=== PATIENT | female | born 1950 | race Hispanic/Latino ===

== ENCOUNTER 2016-11-11 10:46 | Emergency (ER) | payer OTHER ==
[~2016-11-11] VITALS: Ht 160 cm; Wt 62.7 kg
[2016-11-11 10:57] VITALS: BP 130/79; PULSE 65; O2SAT 100
--- NOTE | 2016-11-11 11:10 | ED.REPORT ---
HPI-Abd Pain F 40 and Over Date of Service Nov 11, 2016 ED Provider: Karl Petit DO A 66 year old female presents to the ED complaining of abdominal pain that began last night after eating some spicy steak. Patient reports that the pain has been constant since onset. Associated symptoms include diarrhea and vomiting. Her symptoms began shortly after eating dinner last night. She rates her worst pain as 10/10. Patient states that her "stomach has been sensitive" for that past years and she has been experiencing similar episodes of pain. She was sent from Urgent Care and states that her symptoms improved after receiving a GI cocktail, which improved her pain. She denies melena. Nursing Notes Stated Complaint: ABDOMINAL PAIN Chief Complaint: Female Abdominal Pain Nursing Notes Reviewed: Yes Allergies: Coded Allergies: Sulfa (Sulfonamide Antibiotics) (Verified Allergy, Unknown, Sheron, 11/11/16 ) Scheduled Pantoprazole DR (Pantoprazole DR) 40 Mg Tablet.dr 40 MG PO DAILY General Time Seen by MD: 11:10 Chief Complaint Abdominal pain Hx Obtained From: Patient Arrived By: Walk-in Sudden in Onset?: Yes Symptom Duration: Since onset Progression since Onset: Constant Location: : Epigastric Quality: Painful Radiation: : Does not radiate Severity: Current: Moderate Severity: Maximum: Pain level 10 out of 10 Associated with: Reports: Diarrhea, Vomiting Pertinent Negative: Pt denies other symptoms Recent Healthcare: No recent doctor visit, No recent hospitalization Risk Factors )( AAA Risk Stratification Risk factors reviewed Past Medical History Past Medical History Denies Past Surgical History 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 Neurologic: Denies: Change LOC Physical Exam Vital Signs Vital Signs (First) Date Time Temp Pulse Resp B/P Pulse Ox O2 Delivery O2 Flow Rate FiO2 11/11/16 10:57 36.5 65 130/79 100 Initial VS: Reviewed Head / Eyes: Atraumatic, Normocephalic, PERRL Extremities: Vascular intact, Neuro intact, No swelling, No tenderness Skin: Warm, Dry, No cyanosis Neurologic: Alert, Oriented, Nonfocal Psychiatric: Mood/affect normal, Behavior normal, Normal thought content General/Constitutional: Awake, Alert Respiratory / Chest: Atraumatic, Breath sounds NL, Breath sounds = bilat Cardiovascular: Heart rate NL, Regular rhythm, Heart sounds NL Abdomen: Atraumatic, Soft, No guarding, No rebound Tenderness/Guarding/Rebound: Positive: Tender LUQ... (Mild), Tender RUQ... ( Mild) Back: Atraumatic, Inspection NL Interpretation & Diagnostics Lab Results Interpretation Result Diagram: 11/11/16 1211 11/11/16 1211 Test 11/11/16 12:11 11/11/16 13:00 White Blood Count 9.8th/mm3 (3.8-10.1) Red Blood Count 5.14mil/mm3 (3.90-5.20) Hemoglobin 15.8g/dL (12.0-15.6) Hematocrit 46.6% (35.0-46.0) Mean Corpuscular Volume 90.7fL (81-100) Mean Corpuscular Hemoglobin 30.7pg (27.0-35.0) Mean Corpuscular Hemoglobin Concent 33.9% (32.0-37.0) Red Cell Distribution Width 12.7% (12.3-15.4) Platelet Count 311bil/L (150-400) Neutrophils (%) (Auto) 92.6% (40-74) Lymphocytes (%) (Auto) 4.9% (14-46) Monocytes (%) (Auto) 1.8% (4-12) Eosinophils (%) (Auto) 0.1% (0-5) Basophils (%) (Auto) 0.2% (0-3) Sodium Level 141mEq/L (134-144) Potassium Level 4.5mEq/L (3.5-5.2) Chloride Level 103mEq/L (97-108) Carbon Dioxide Level 24mmol/L (18-29) Blood Urea Nitrogen 17mg/dL (8-27) Creatinine 0.81mg/dL (0.57-1.00) Estimat Glomerular Filtration Rate 102mL/min (>59) Glucose Level 113mg/dL (60-99) Lactic Acid Level 1.2mmol/L (0.4-2.0) Calcium Level 9.6mg/dL (8.5-10.1) Magnesium Level 2.2mg/dL (1.6-2.6) Total Bilirubin 0.6mg/dL (0.0-1.2) Aspartate Amino Transf (AST/SGOT) 17U/L (0-50) Alanine Aminotransferase (ALT/SGPT) 12U/L (0-32) Alkaline Phosphatase 77U/L (25-165) Total Protein 8.1g/dL (6.4-8.4) Albumin 4.6g/dL (3.4-5.0) Lipase 29U/L (13-60) Hold Urine Received (Received) Lab Results Interpretation: Negative Urine Dip ECG Interpretation ECG Interpretation: Normal Sinus Rhythm Rate 62 Time: 11:33 Interpreted by: ED physician Re-Eval/Medical Decision Med Decision/Clinical Course Benign labs and abdominal exam, patient gives a long history of reflux symptoms and that this is worsened after eating a meal last night. Feeling better and tolerating oral intake it seems unlikely that she has life-threatening pathology at this time. It is recommended that she follow-up with her doctor for GI consult and possible abdominal ultrasound versus CAT scan as an outpatient. Additionally Protonix and Zofran prescribed and return precautions given. Re-Evaluation/Progress : Time of Eval: 13:09 Patient Status: Condition improved Re-Evaluation/Progress Note: Patient is rechecked. She is informed of her lab results and diagnosis. All of the patient's questions are addressed. She understands and agrees with the treatment plan. Counseled Regarding: Diagnosis, Lab results, Need for follow-up, When/why to return to ED Discharge & Departure Primary Impression: Abdominal Pain, Epigastric Disposition: Home Discharge Condition All VS Reviewed: Yes Condition: Stable Patient Instructions: Acute Abdominal Pain (ED) Additional Instructions: Thank you for trusting us with your care this morning. Your emergency department evaluation today included interview, examination and lab results. Your results are reassuring that there is no dangerous cause for concern at this time. Schedule a follow up appointment with your primary care provider in the next 2-3 days for a recheck. Use [id number] antacid as needed. Stop omeprazole and use pantoprazole. Please return to the emergency department for any new or worsening symptoms. [facility] Scribe Attestation Portions of this note were transcribed by Keely Rob. I, Dr. Petit personally performed the history, physical exam and medical decision-making; I reviewed and confirmed the accuracy of the information in the transcribed note. Signed by: Keely Rob, 11/11/16, 1344. Karl Petit DO Nov 11, 2016 11:10 KEELY ROB Nov 11, 2016 11:23
[2016-11-11] MEDS ORDERED: 0.9% Sodium Chloride 1,000 ML IV ONE (11:22)
[2016-11-11] MEDS ORDERED: Pantoprazole 4 mg/mL 10 mL Inj IVPUSH ONE (11:25)
[2016-11-11] MEDS ORDERED: Ondansetron 2 mg/mL 2 mL Inj IVPUSH PRN (11:25)
[2016-11-11 12:16] LABS: BASOPHILS % (AUTO) 0.2 % (0-3); EOSINOPHILS % (AUTO) 0.1 % (0-5); MONOCYTES % (AUTO) 1.8 % (4-12); Mean Corpuscular Hemoglobin 30.7 pg (27.0-35.0); Mean Corpuscular Volume 90.7 fL (81-100); NEUTROPHILS % (AUTO) 92.6 % (40-74); Platelet Count 311 bil/L (150-400)
[2016-11-11 13:03] LABS: Magnesium 2.2 mg/dL (1.6-2.6)
[2016-11-11] MEDS ORDERED: PANT40TA3 PO (13:40)
[2016-11-11 14:22] VITALS: BP 151/73; PULSE 60; O2SAT 100
[2016-11-11 14:45] VITALS: BP 151/73; PULSE 60; O2SAT 100
[2016-11-12] MEDS ORDERED: OMEP40CA36 PO (13:26)
== END 2016-11-11 14:45 | disposition home or self-care (01) ==
LOC: SED 10:46
DX: R10.13 Epigastric pain (principal); R19.7 Diarrhea, unspecified; R11.10 Vomiting, unspecified; Z88.2 Allergy status to sulfonamides
CPT/HCPCS: 80053; 83605; 83690; 83735; 85025; 93005; 96361; 96374; 96375; 99285; J2270; J2405; J7030

== ENCOUNTER 2016-11-12 08:21 | Inpatient (IN) | payer OTHER ==
[~2016-11-12] VITALS: Ht 160 cm; Wt 64.3 kg
[~2016-11-12 08:21] MED LIST: PANT40TA3 PO
[2016-11-12 08:23] VITALS: BP 105/69; PULSE 71; RESP 16; O2SAT 99
--- NOTE | 2016-11-12 08:29 | ED.REPORT ---
HPI-Abd Pain F 40 and Over Date of Service Nov 12, 2016 ED Provider: Karl Petit DO Patient is a 66 year old female presents to the ER complaining of epigastric pain that has been ongoing over the last few days. Her pain began two nights ago after she ate "spicy" steak. The patient has been nauseated and vomited a few times throughout the night. She is unable to pass gas and has not had a bowel movement. Patient describes pain as constant but tolerable, with infrequent jabs of pain. She was unable to sleep all night due to the pain. Pt c /o associated chills, diaphoresis, and light headedness. Pt took a tsp of antacid and Zofran last night which did not help to relieve symptoms. She was seen in the emergency department yesterday for similar symptoms. Patient states that her "stomach has been sensitive" for years and she has been experiencing similar episodes of pain. Nursing Notes Stated Complaint: STOMACH PAIN Chief Complaint: Female Abdominal Pain Nursing Notes Reviewed: Yes Allergies: Coded Allergies: Sulfa (Sulfonamide Antibiotics) (Verified Allergy, Unknown, Sheron, 11/11/16 ) Scheduled Pantoprazole DR (Pantoprazole DR) 40 Mg Tablet.dr 40 MG PO DAILY General Time Seen by MD: 08:27 Chief Complaint Abdominal pain Hx Obtained From: Patient Arrived By: Walk-in Sudden in Onset?: Yes Symptom Duration: Since onset Location: : Diffuse Quality: Painful Radiation: : Does not radiate Severity: Current: Mild Severity: Maximum: Moderate Recent Healthcare: Recent doctor visit, Recent hospitalization Similar Sx Previous: Yes Past Medical History Past Medical History None Past Surgical History 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 Neurologic: Reports: Lightheaded Physical Exam Vital Signs Vital Signs (First) Date Time Temp Pulse Resp B/P Pulse Ox O2 Delivery O2 Flow Rate FiO2 11/12/16 08:23 36.4 71 16 105/69 99 Room Air Initial VS: Reviewed Skin: Warm, Dry, No cyanosis Neurologic: Alert, Oriented, Nonfocal Psychiatric: Mood/affect normal, Behavior normal, Normal thought content General/Constitutional: Awake, Alert Respiratory / Chest: Atraumatic, Breath sounds NL, Breath sounds = bilat, No respiratory distress, No rales Cardiovascular: Heart rate NL, Regular rhythm, Heart sounds NL Bowel Sounds / Distention: Positive: Bowel sounds tympanitic distended Back: Atraumatic, Inspection NL, Full range of motion, Painless range of motion , Non-tender Head / Eyes: Atraumatic, Normocephalic, PERRL, EOMI ENT: Atraumatic, Mucous membranes moist, Pharynx NL Interpretation & Diagnostics Lab Results Interpretation Result Diagram: 11/12/16 0850 11/12/16 0850 Test 11/12/16 08:50 White Blood Count 7.0th/mm3 (3.8-10.1) Red Blood Count 4.79mil/mm3 (3.90-5.20) Hemoglobin 14.7g/dL (12.0-15.6) Hematocrit 43.8% (35.0-46.0) Mean Corpuscular Volume 91.4fL (81-100) Mean Corpuscular Hemoglobin 30.7pg (27.0-35.0) Mean Corpuscular Hemoglobin Concent 33.6% (32.0-37.0) Red Cell Distribution Width 12.6% (12.3-15.4) Platelet Count 308bil/L (150-400) Neutrophils (%) (Auto) 81.0% (40-74) Lymphocytes (%) (Auto) 11.5% (14-46) Monocytes (%) (Auto) 7.0% (4-12) Eosinophils (%) (Auto) 0.1% (0-5) Basophils (%) (Auto) 0.1% (0-3) Sodium Level 142mEq/L (134-144) Potassium Level 4.2mEq/L (3.5-5.2) Chloride Level 103mEq/L (97-108) Carbon Dioxide Level 26mmol/L (18-29) Blood Urea Nitrogen 18mg/dL (8-27) Creatinine 0.87mg/dL (0.57-1.00) Estimat Glomerular Filtration Rate 94mL/min (>59) Glucose Level 113mg/dL (60-99) Calcium Level 9.1mg/dL (8.5-10.1) Magnesium Level 2.1mg/dL (1.6-2.6) Total Bilirubin 0.7mg/dL (0.0-1.2) Aspartate Amino Transf (AST/SGOT) 14U/L (0-50) Alanine Aminotransferase (ALT/SGPT) 9U/L (0-32) Alkaline Phosphatase 64U/L (25-165) Total Protein 7.2g/dL (6.4-8.4) Albumin 4.1g/dL (3.4-5.0) Lipase 26U/L (13-60) CT Abd / Pelvis Interpretation IMPRESSION: Partial small bowel obstruction due to 15-20 cm of abnormal appearing jejunum. The jejunum appears to be thick walled with enhancing mucosa. Cause of this is not identified. This could be inflammatory, effective, or ischemic. Dictated by: Pan Black M.D. on 11/12/2016 at 9:51 Study type: Abdominal CT IV contrast Interpretation / Wet Read by: Interpret - Radiologist Re-Eval/Medical Decision Med Decision/Clinical Course Small bowel obstruction. Will be admitted. Surgery consulted. Re-Evaluation/Progress : Time of Eval: 10:15 Re-Evaluation/Progress Note: Pt rechecked. Informed pt of diagnosis of partial bowel obstruction and plan for treatment and admission. Pt understands and agrees with plan. All questions answered. Consultation #1: Referral / Consult Name: Ronald Cordero MD Consulted With: Surgeon Call Returned at: 10:34 Steel Crane Operator: Will see patient, Agrees with eval, Agrees with plan, Accepts admit Note: Consults with surgeon, Dr. Ronald Cordero. Surgeon will come and see patient and does not recommend to put in an NG tube. Consultation #2: Referral / Consult Name: Nghia Santana MD Consulted With: Hospitalist Call Returned at: 10:56 Steel Crane Operator: Will see patient, Agrees with eval, Accepts admit Counseled Regarding: Diagnosis, Lab results, Need for admission Discharge & Departure Primary Impression: Partial bowel obstruction Disposition: ADMITTED TO HOSPITAL Discharge Condition All VS Reviewed: Yes Condition: Stable Referrals: Danika Frey (PCP) Scribe Attestation Portion of this note were transcribed by Montse Hagen and Anna Marie Ward. I, Dr. Adrian Bee, personally performed the history, physcial exam, and medical decision- making: I reviewed and confirmed the accuracy for the information in the transcribed note. Signed by: Anna Marie Ward and sam Henry, 11/09/16 1101. copies to: Danika Frey Timothy S DO Nov 12, 2016 08:29 ANNA MARIE WARD Nov 12, 2016 08:48 Montse Hagen Nov 12, 2016 10:10
[2016-11-12] MEDS ORDERED: Alum-Mag Hydrox-Simeth 30 mL Suspension PO ONE (08:40)
[2016-11-12] MEDS ORDERED: 0.9% Sodium Chloride 1,000 ML IV ONE (08:41)
[2016-11-12] MEDS ORDERED: Pantoprazole 4 mg/mL 10 mL Inj IVPUSH ONE (08:45)
[2016-11-12] MEDS ORDERED: Promethazine Inj 25 MG in 0.9% Sodium Chloride 50 ML IV ONE (08:45)
[2016-11-12 08:48] VITALS: BP 150/78; PULSE 88; RESP 17; O2SAT 99
[2016-11-12 09:05] LABS: BASOPHILS % (AUTO) 0.1 % (0-3); EOSINOPHILS % (AUTO) 0.1 % (0-5); Mean Corpuscular Hemoglobin 30.7 pg (27.0-35.0); Mean Corpuscular Volume 91.4 fL (81-100); Platelet Count 308 bil/L (150-400)
[2016-11-12 09:24] LABS: Magnesium 2.1 mg/dL (1.6-2.6)
--- NOTE | 2016-11-12 09:53 | DRSVH ---
PROCEDURE: CT ABDOMEN AND PELVIS WITH CONTRAST ([id number]) INDICATIONS: upper abd pain, persistent vomiting TECHNIQUE: After the administration of intravenous contrast, 5 mm thick sections acquired from the diaphragm to the symphysis. 5 mm coronal and sagittal reformats were acquired. For radiation dose reduction, the following was used: automated exposure control, adjustment of mA and/or kV according to patient siz e. COMPARISON: None. FINDINGS: Image quality: Excellent. ABDOMEN: Lung bases: Lung bases are clear. Heart size is normal. Solid organs: Liver and spleen are normal in size and enhancement. In the right lobe of the liver is a 1.4 cm area that appears irregular discontinuous enhancement. No pneumothorax can represent an hem angioma. In the spleen there 2 areas of decreased attenuation compared to normal enhancing parenchyma of unknown significance as they are an old studies to compare. Gallbladder is considered within nor mal limits.. Biliary system is non dilated. Pancreas enhances normally. No adrenal nodules. Kidne ys demonstrate normal size and enhancement, without hydronephrosis. Peritoneum and bowel: There is a moderate amount of fluid in the stomach and proximal small bowel co nsistent with partial obstruction. The obstruction is thought to be jejunum and position and series 3 image 32 there is an abrupt transition. At this point there appears to be 15-20 cm of small bowel wi th some thickening wall and enhancing mucosa. No air in bowel wall is seen. No identifiable vascular abnormality to indicate loss of enhancement from contrast is seen. Inflammation or infection could ca use this appearance. Adhesion could cause ischemic change. Terminal ileum cecum area are considered w ithin normal limits. There is a small amount of free fluid in the cul-de-sac. Nodes and vessels: No retroperitoneal or mesenteric adenopathy by size criteria. Aorta and inferior vena cava are normal in size. Miscellaneous: No ventral hernias. PELVIS: Genitourinary: Bladder wall thickness is normal. Uterus is mildly enlarged and heterogeneous and lo bular suggesting multiple fibroids. Miscellaneous: No inguinal hernias or adenopathy. Bones: No suspicious bony lesions. No vertebral body compression fractures. IMPRESSION: Partial small bowel obstruction due to 15-20 cm of abnormal appearing jejunum. The jejunu m appears to be thick walled with enhancing mucosa. Cause of this is not identified. This could be in flammatory, effective, or ischemic. Dictated by: Pan Black M.D. on 11/12/2016 at 9:51 Approved by: Pan Black M.D. on 11/12/2016 at 9:51 Dr. Petit is aware of these findings.
[2016-11-12] MEDS ORDERED: Polyethylene Glycol (PEG) 17 Gm Powder PO PRN (11:00)
[2016-11-12] MEDS ORDERED: Alum-Mag Hydrox-Simeth 30 mL Suspension PO PRN (11:00)
[2016-11-12 11:43] VITALS: BP 106/66; PULSE 66; RESP 20; O2SAT 97
[2016-11-12] MEDS: D5 0.45% NaCl + KCl 20 mEq/L 1,000 ML IV SCH (12:35)
--- NOTE | 2016-11-12 13:20 | NUR ---
Admit to [facility] Pt arrived from ED at 1150 hrs. Alert and oriented X 3. PIV patent and symptomatic. VSS; afebrile. Pt denies nausea at this time. Personal possessions with pt and placed in closet. Spouse at bedside. NG tube was inserted and connected to continuous suction. Tube draining clear, watery drainage fluid. Care continues
[2016-11-12] MEDS ORDERED: OMEP40CA36 PO (13:26)
[2016-11-12 13:30] LABS: APPEARANCE,URINE CLEAR (CLEAR,HAZY); COLOR,URINE YELLOW (YELLOW); OCCULT BLOOD,URINE TRACE (NEGATIVE); UROBILINOGEN,URINE NORMAL (NORMAL)
--- NOTE | 2016-11-12 14:37 | PCM.HPMED ---
Subjective Date of Service Nov 12, 2016 Primary Provider: Admitting Physician: Primary Care Physician: Danika Frey Attending Physician: Admit Status: From the Emergency Department, Admit to Red Team Chief Complaint: 66-year-old woman with history of dyspepsia presents with acute abdominal pain, nausea and vomiting, found to have partial small bowel obstruction on abdominal CT scan. History of Present Illness: The patient had an episode of acute epigastric pain in 12/2015 treated with antacid therapy. She subsequently observed dietary precautions and has taken omeprazole 20 mg per day. She has had no significant recurrence. 2 days prior to admission in the evening after dinner she experience severe symptoms similar to her prior episode. Pain was initially epigastric. He was described as a sharp pain centered in her bilateral upper quadrants and epigastrium. The patient had a colicky pattern over the time period of 5-30 minutes. Underlying pain was continuous throughout. The pain radiated to her lower abdominal quadrants bilaterally She developed several bouts of nausea and vomiting. She took antacids, and had some diarrhea subsequently. Diarrhea stopped one day prior to admission and she has had no further stool output or flatus. She and her endorse abdominal distention. Other than one episode of acute epigastric pain in 12/2015 she has no prior gastroenterologic history. At age 8 months she had abdominal surgery, but has had no subsequent abdominal surgery. She has no history of colitis, Crohn's, celiac disease, gallbladder disease, hepatic problems, never diagnosed peptic ulcer. Family history is negative for gastric malignancy. On review of systems she has no symptoms elsewhere in her body. Review of Systems: Complete review of systems performed with significant findings noted in history of present illness and PMH. Pertinent negatives include no ocular pain, no skin lesions, no infectious exposures. Allergies Coded Allergies: Sulfa (Sulfonamide Antibiotics) (Verified Allergy, Intermediate, Nausea, ) Home Medications Omeprazole 20 mg per day PMH # Functional dyspepsia # Pneumonia 2014 Family History Mother at 95 Father CVA 5 siblings, one sister due to cardiac valvular disease, one sister with gallbladder surgery, others alive and well Social History Occupation: high school assistant football coach, full-time Hx Alcohol Use: Yes (rarely) Hx Substance Use: No Smoking Status: Never Smoker Living Arrangement: with Family Additional Information Lives with . No biological children. Exam Vital Signs Vital Sign - Last Date Time Temp Pulse Resp B/P Pulse Ox O2 Delivery O2 Flow Rate FiO2 11/12/16 08:23 36.4 71 16 105/69 99 Room Air Exam Constitutional: Healthy appearing middle-aged woman ; no acute distress; vital signs noted Eyes: sclerae anicteric, no conjunctival pallor, no conjunctival injection ENMT: ears, nose atraumatic; oral mucosa moist Neck: supple, JVD absent Chest: symmetric, no pain or lesions Resp: auscultation clear, no wheezes, rales or dullness Cardiac: S1, S2, regular, no murmur Abdomen: bowel sounds present but slightly reduced, tender in epigastric palpation, no rebound, no organomegaly, Varner's sign negative, no obvious distention or tympany Musculoskeletal: no joints with acute erythema, swelling Skin and soft tissues: no rash; no pitting edema Peripheral pulses: normal at wrist, feet Lymphatic: no adenopathy cervical Neurological: Cranial Nerves - face symmetric Reflexes - BJ, KJ symmetric 2+ Motor - 5/5 strength, normal tone Coordination - normal movement, no tremor Sensory - light touch intact Psych & Mental Status - oriented Lab and Diagnostics Labs UA normal Result Diagram: 11/12/16 0850 11/12/16 0850 X-Rays, CTs and MRIs PROCEDURE: CT ABDOMEN AND PELVIS WITH CONTRAST ([id number]) FINDINGS: Solid organs: Liver and spleen are normal in size and enhancement. In the right lobe of the liver is a 1.4 cm area that appears irregular discontinuous enhancement. No pneumothorax can represent an hemangioma. In the spleen there 2 areas of decreased attenuation compared to normal enhancing parenchyma of unknown significance as they are an old studies to compare. Gallbladder is considered within normal limits.. Biliary system is non dilated. Pancreas enhances normally. No adrenal nodules. Kidneys demonstrate normal size and enhancement, without hydronephrosis. Peritoneum and bowel: There is a moderate amount of fluid in the stomach and proximal small bowel consistent with partial obstruction. The obstruction is thought to be jejunum and position and series 3 image 32 there is an abrupt transition. At this point there appears to be 15-20 cm of small bowel with some thickening wall and enhancing mucosa. No air in bowel wall is seen. No identifiable vascular abnormality to indicate loss of enhancement from contrast is seen. Inflammation or infection could cause this appearance. Adhesion could cause ischemic change. Terminal ileum cecum area are considered within normal limits. There is a small amount of free fluid in the cul-de-sac. IMPRESSION: Partial small bowel obstruction due to 15-20 cm of abnormal appearing jejunum. The jejunum appears to be thick walled with enhancing mucosa. Cause of this is not identified. This could be inflammatory, effective, or ischemic. Dictated by: Pan Black M.D. on 11/12/2016 at 9:51 . Assessment & Plan 66-year-old woman with history of functional dyspepsia presents with acute abdominal pain. Initial presentation appeared to be gastritic with food stimulus and pain similar to prior epigastric episodes. Subsequently patient notes increased abdominal bloating with reduced stool and flatus, compatible with abdominal CT findings of partial SBO. No prior history to explain the jejunal location for SBO. # Partial small bowel obstruction, acute. - Nothing by mouth with maintenance IV hydration - Gen. surgery consult - Abdominal ultrasound for further visualization of gastric, biliary hepatic anatomy - NG tube in place at present, consider low intermittent suction if the patient is nauseated - Patient counseled to minimize use of opioids; only as needed for severe pain # Peptic disease, acute on chronic. - IV proton pump inhibitor - Will consider GI consult if epigastric symptoms persist despite resolution of partial SBO; not needed at present Pain Evaluation: Adequate Pain Control GI Prophylaxis: Proton Pump Inhibitor VTE Prophylaxis: Sub-Q Enoxaparin Resuscitation Status: CPR: Attempt Resuscitation Time spent 60 minutes Nghia Santana MD Nov 12, 2016 11:01
[2016-11-12 17:02] VITALS: BP 113/68; PULSE 71; RESP 20; O2SAT 95
--- NOTE | 2016-11-12 17:03 | DRSVH ---
PROCEDURE: US ABDOMEN, LIMITED ([id number]) INDICATIONS: abdominal pain TECHNIQUE: Real-time focused scanning was performed of the abdomen, with image documentation. COMPARISON: None. FINDINGS: The liver shows an increased echogenicity suggesting possible mild fatty infiltration. This is probably true with review of the CT scan as well. The gallbladder shows no wall thickening or acute changes. There is an echogenic focus that does not move and does not shadow and is consistent with a small polyp measuring 4 x 5 x 7 mm in size. Extrahe patic biliary tree and intrahepatic biliary tree are not dilated. The 2 areas of decreased attenuation on the CT scan of increased echogenicity on ultrasound and would suggest hemangiomas in the spleen. IMPRESSION: 1. Probable fatty infiltration of the liver. 2. 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 3. Small polyp in the gallbladder. Dictated by: Pan Black M.D. on 11/12/2016 at 17:01 Approved by: Pan Black M.D. on 11/12/2016 at 17:01
--- NOTE | 2016-11-12 17:36 | CONS ---
[address] [address] CONSULTATION REPORT PATIENT: HEATHER WILSON : 1950 MR#: [id number] ADMIT: 11/12/2016 JOB ID: [id number] DATE OF SERVICE: 11/12/2016 CHIEF COMPLAINT/IDENTIFICATION: I have been asked by Dr. Petit and the hospitalist service to consult on this 66-year-old woman with a partial small bowel obstruction. HISTORY OF PRESENT ILLNESS: The patient was in her usual good state of health until Sunday night after she ate some spicy steak and developed explosive, watery diarrhea, crampy abdominal pain and nausea and vomiting. She was seen in the emergency department and noted to be a bit dehydrated, received hydration and then follows up today, stating that her diarrhea has resolved, but she has been vomiting and continues to have the crampy abdominal pain. X-rays are consistent with a partial small bowel obstruction. She tells me that she had some unknown surgery as a child at eight months and does have a right upper quadrant paramedian incision. She also notes that she did have some self-limited abdominal pain back in December that she sought care with her primary care provider but no hospitalization and no GI workup as everything resolved. She reports always having a "sensitive stomach." PAST MEDICAL HISTORY: Otherwise negative. MEDICATIONS: None. ALLERGIES: SULFA. SOCIAL HISTORY: She works at [employer] in [place], is planning to retire next year. She is seen with her . Negative tobacco. Negative daily alcohol. FAMILY HISTORY: Noncontributory. REVIEW OF SYSTEMS: Negative. PHYSICAL EXAMINATION: Height and weight proportionate female in no acute distress. Temperature is 36.4. Vital signs are within normal limits. Her sclerae are clear. She has no cervical adenopathy. Breasts are not examined. Lungs and heart are unremarkable. Her abdomen is mildly distended, with rushes and tinkles, no focal tenderness. She has no groin hernias. She has no groin adenopathy. LABORATORY DATA: Her white count is 7, her hematocrit is 43. Platelet count is 308. Chemistries are normal. Lipase is 26. CT scan was obtained and I have reviewed both the images and the report. She definitely has a proximal dilated small bowel all the way back to the stomach filled with fluid and some air fluid levels in the small bowel. Somewhere in the mid jejunum there appears to be a 15-20 cm segment of small bowel that has thickened willoughby, enhancing mucosa and this is a transition point. There is no significant free fluid around the bowel though there is a small amount of free fluid noted in the cul-de-sac. IMPRESSION AND PLAN: A healthy 66-year-old woman that has a partial mechanical/functional obstruction due to an abnormal segment of jejunum that may represent some focal enteritis versus focal ischemia versus acute on chronic thickening. She clearly does not need an operation today. I would recommend a nasogastric tube for comfort. If this all completely resolves radiographically and clinically over the next 24 hours, she may need no further workup but at some point she might benefit from both upper endoscopy and possibly even capsule endoscopy. If this focal abnormality persists and/or worsens, she may need a laparoscopic exploration sometime this hospitalization. General Surgery will continue to follow her. I will order plain films for tomorrow.
[2016-11-12] MEDS: Pantoprazole 4 mg/mL 10 mL Inj IVPUSH SCH (18:16)
[2016-11-12 20:16] VITALS: BP 116/71; PULSE 66; RESP 18; O2SAT 98
[2016-11-12] MEDS ORDERED: Famotidine Inj 20 MG in IV Premix 1 EACH IV SCH (20:30)
[2016-11-13] VITALS (8 sets, daily range): BP systolic 112–143; BP diastolic 67–86; PULSE 60–83; RESP 14–20; O2SAT 94–100
[2016-11-13] MEDS: D5 0.45% NaCl + KCl 20 mEq/L 1,000 ML IV SCH ×3 (00:33→23:51)
--- NOTE | 2016-11-13 04:11 | NUR ---
Activity Pt ambulates with on unit x1 this shift. Denies pain, discomfort of tube in nose is minimal. Educated on diet, narcotic use in relation to constipation, and activity to promote bowel movement. Pt A&Ox4, VS WNL, and without SOB or chest pain. Abdominal distension relieved by NG, draining watery green fluid. Pt remains NPO, CS checked and WNL. IV site patent and infusing D5 1/2 NS with 20 mEq K+. Will continue to monitor.
[2016-11-13 06:22] LABS: BASOPHILS % (AUTO) 0.2 % (0-3); EOSINOPHILS % (AUTO) 1.2 % (0-5); MONOCYTES % (AUTO) 12.1 % (4-12); Mean Corpuscular Hemoglobin 30.9 pg (27.0-35.0); Mean Corpuscular Volume 93.3 fL (81-100); NEUTROPHILS % (AUTO) 61.4 % (40-74); Platelet Count 281 bil/L (150-400)
--- NOTE | 2016-11-13 08:55 | NUR ---
Off Unit Patient off the floor to x-ray via W/C.
--- NOTE | 2016-11-13 09:03 | NUR ---
Back on Unit Patient back on floor from x-ray via W/C.
--- NOTE | 2016-11-13 10:32 | DRSVH ---
PROCEDURE: X-RAY ACUTE ABDOMINAL SERIES ([id number]) INDICATIONS: f/u sbo TECHNIQUE: One view chest and two views of the abdomen were acquired. COMPARISON: [facility], CT, CT ABD PELVIS W CON, 11/12/2016, 9:14. FINDINGS: Surgical changes and devices: There is a nasogastric tube in stomach. Chest: No acute pulmonary opacities. Left basilar opacities are likely atelectasis. Heart size is no rmal. No pleural effusions. No pneumoperitoneum. Abdomen: Mildly distended small bowel loops are noted in mid abdomen with several air-fluid levels. T he distal small bowel there is non-aerated. Moderate amount of stool in colon. No suspicious calcifi cations. Visualized solid organ contours appear normal. Bones: No suspicious bony lesions. IMPRESSION: Persistent small bowel obstruction. Dictated by: Judy Rockwell M.D. on 11/13/2016 at 10:30 Approved by: Judy Rockwell M.D. on 11/13/2016 at 10:30
[2016-11-13] MEDS: Pantoprazole 4 mg/mL 10 mL Inj IVPUSH SCH ×2 (10:38→17:12)
--- NOTE | 2016-11-13 11:11 | PCM.PNSURG ---
Subjective Visit Information: Reason for Visit Partial Sbo Surgery/Surgery Date Post-Op Day # Date of Admission: Nov 12, 2016 at 11:01 Hospital Day # Subjective: feels better, hasn't required pain meds, less abd distention, NGT less bilious, passed a little flatus Objective Objective Awake in bed NGT in place Abd: benign, nontender, R paramedian scar Vital Sign- Last 8 Hours Date Time Temp Pulse Resp B/P Pulse Ox O2 Delivery O2 Flow Rate FiO2 11/13/16 09:48 36.8 72 16 112/75 99 Room Air 11/13/16 06:32 37.1 76 16 118/77 99 Room Air Intake and Output- Last 8 Hour 11/13/16 Cumulative From/Thru 07:00 11/12/16 08:23 - 11/13/16 06:32 Intake Total 951 ml 2317 ml Output Total 900 ml 1725 ml Balance 51 ml 592 ml Intake Oral 0 ml 0 ml IV Total 951 ml 2317 ml Output Urine Total 900 ml 1525 ml Gastric Drainage Total 0 ml 200 ml # Bowel Movements 0 0 Result Diagram: 11/13/16 0530 11/13/16 0530 Assessment & Plan Impression Abd pain, partial SBO, improving Thickened jejunum on CT scan Problems: Plan Will consult GI service for EGD today Clamp NGT and check residual in 4 hrs Ambulate VTE Prophylaxis: Sub-Q Enoxaparin Resuscitation Status: CPR: Attempt Resuscitation Nicola Bateman MD Nov 13, 2016 11:11
[2016-11-13] MEDS ORDERED: Acetaminophen 32.5 mg/mL 20 mL Liquid PO PRN (11:20)
[2016-11-13] MEDS ORDERED: fentaNYL-PF 50 mCg/mL 2 mL Inj IVPUSH PRN (14:30)
--- NOTE | 2016-11-13 14:45 | NUR ---
Off Unit Patient off floor to ENDO via stretcher. IV SL
--- NOTE | 2016-11-13 15:09 | PCM.PNMED ---
Subjective Date of Service Nov 13, 2016 Subjective Pt seen and examined. Patient has no complaints. Claims the nausea has subsided significantly. Will continue to monitor out put. Exam Vital Signs Vital Sign - Last Date Time Temp Pulse Resp B/P Pulse Ox O2 Delivery O2 Flow Rate FiO2 11/13/16 14:56 69 14 120/74 97 Room Air 11/13/16 09:48 36.8 Intake and Output 11/12/16 11/12/16 11/13/16 Cumulative From/Thru 14:59 22:59 06:59 11/12/16 08:23 - 11/13/16 06:32 Intake Total 1000 ml 366 ml 951 ml 2317 ml Output Total 825 ml 900 ml 1725 ml Balance 1000 ml -459 ml 51 ml 592 ml Intake Oral 0 ml 0 ml 0 ml IV Total 1000 ml 366 ml 951 ml 2317 ml Output Urine Total 625 ml 900 ml 1525 ml Gastric Drainage Total 200 ml 0 ml 200 ml # Bowel Movements 0 0 Exam General:Pt in no acute distress and resting comfortably HEENT: sclerae anicteric, oral mucosa moist Neck: no JVD Chest: clear to auscultation Cardiac: S1S2, II/ SE murmur with prosthetic S2 Abdomen: BS normal, non-tender, non distended Extremities: No acute asymmetry or focal swelling Neuro: A&O, cranial nerves symmetric, motor strength and coordination grossly normal Lab and Diagnostics Result Diagram: 11/13/16 0530 11/13/16 0530 X-Rays, CTs and MRIs PROCEDURE: CT ABDOMEN AND PELVIS WITH CONTRAST ([id number]) FINDINGS: Solid organs: Liver and spleen are normal in size and enhancement. In the right lobe of the liver is a 1.4 cm area that appears irregular discontinuous enhancement. No pneumothorax can represent an hemangioma. In the spleen there 2 areas of decreased attenuation compared to normal enhancing parenchyma of unknown significance as they are an old studies to compare. Gallbladder is considered within normal limits.. Biliary system is non dilated. Pancreas enhances normally. No adrenal nodules. Kidneys demonstrate normal size and enhancement, without hydronephrosis. Peritoneum and bowel: There is a moderate amount of fluid in the stomach and proximal small bowel consistent with partial obstruction. The obstruction is thought to be jejunum and position and series 3 image 32 there is an abrupt transition. At this point there appears to be 15-20 cm of small bowel with some thickening wall and enhancing mucosa. No air in bowel wall is seen. No identifiable vascular abnormality to indicate loss of enhancement from contrast is seen. Inflammation or infection could cause this appearance. Adhesion could cause ischemic change. Terminal ileum cecum area are considered within normal limits. There is a small amount of free fluid in the cul-de-sac. IMPRESSION: Partial small bowel obstruction due to 15-20 cm of abnormal appearing jejunum. The jejunum appears to be thick walled with enhancing mucosa. Cause of this is not identified. This could be inflammatory, effective, or ischemic. Dictated by: Pan Black M.D. on 11/12/2016 at 9:51 . Assessment & Plan 66-year-old woman with history of functional dyspepsia presents with acute abdominal pain. Initial presentation appeared to be gastritic with food stimulus and pain similar to prior epigastric episodes. Subsequently patient notes increased abdominal bloating with reduced stool and flatus, compatible with abdominal CT findings of partial SBO. No prior history to explain the jejunal location for SBO. # Partial small bowel obstruction, acute. - Nothing by mouth with maintenance IV hydration - Gen. surgery consult - Abdominal ultrasound for further visualization of gastric, biliary hepatic anatomy - NG tube in place at present, consider low intermittent suction if the patient is nauseated - per patient she is going for upper endoscopy later today # Peptic disease, acute on chronic. - IV proton pump inhibitor - Will consider GI consult if epigastric symptoms persist despite resolution of partial SBO; not needed at present GI Prophylaxis: Proton Pump Inhibitor VTE Prophylaxis: Sub-Q Enoxaparin VTE Mechanical Devices: Intermittant Pneumatic CD Resuscitation Status: CPR: Attempt Resuscitation Santiago Reynolds MD Nov 13, 2016 15:09
[2016-11-13] MEDS ORDERED: 0.9% Sodium Chloride 1,000 ML ONE (15:19)
[2016-11-13] MEDS: 0.9% Sodium Chloride 1,000 ML ONE ×2 (15:34→15:47)
--- NOTE | 2016-11-13 16:30 | NUR ---
Back on Unit Patient back on floor from ENDO via stretcher. Denies pain and nausea at this time. Call light and tray table within reach. Will continue to monitor patient hourly.
--- NOTE | 2016-11-13 17:00 | NUR ---
NG Tube NG tube DC'd. Patient diet advanced to clear liquid. Patient denies pain and nausea at this time. Will continue to monitor patient.
--- NOTE | 2016-11-13 18:09 | PCM.CHPMED ---
Subjective Date of Service: Nov 13, 2016 Provider requesting consult: Nghia Santana MD Primary Physician: Admitting Physician: Kamila Rodríguez MD Primary Care Physician: Danika Frey Attending Physician: Kamila Rodríguez MD Chief Complaint: Chief Complaint: Abdominal pain History of Present Illness: Gastroenterology Consult Note Patient is a 66 year old female with history of dyspepsia who presents with severe epigastric pain after eating spicy steak 2 days ago. She reports her pain initially started as a sharp pain in the epigastric region, similar to her prior pain but more severe. The pain began to move down in to bilateral upper quadrants, radiating down into bilateral lower quadrants. She described it as a colicky pain over about 30 minutes, with continuous underlying pain. The pain was accompanied by nausea, vomiting and explosive diarrhea. The diarrhea stopped the next day and she had not had a bowel movement or flatus since. She then began having severe abdominal distension and pain. In the ED, abdominal CT showed a moderate amount of fluid in the stomach and proximal small bowel consistent with partial obstruction, likely in the jejunum. CT also revealed wall thickening around the jejunum. Other than one episode of acute epigastric pain in Dec 2015 and abdominal surgery at 8 months old for an abdominal mass, she denies any other prior gastroenterologic history. She denies history of Crohn's, celiac disease, gallbladder disease, liver disease, and has never been diagnosed for peptic ulcer disease and has never been tested for H. pylori. She denies history of colon cancer, but states her mother had peptic ulcer disease, requiring surgery. She is unsure about her last colonoscopy but states that she has regularly schedule colonoscopy and has never had an abnormal result. She denies NSAID use, alcohol use, or smoking. Today, she states her abdominal pain has mostly resolved, but she has still not had a bowel movement. She has been passing some gas today. She reports abdominal distension, but much improved from admission. She reports occasional nausea, but denies vomiting. She denies fevers, chills, hematochezia. Review of Systems: Comprehensive review of systems conducted and was negative except for the pertinent positives listed above. PMH Past Medical History Functional dyspepsia Pneumonia in 2015 Bedside Blood Glucose: 112 Surgical History Abdominal mass removal at 8 months old Allergies: Coded Allergies: Sulfa (Sulfonamide Antibiotics) (Verified Allergy, Intermediate, Nausea, ) Family History Family History Mother at 95; history of PUD Father CVA 5 siblings, one sister due to cardiac valvular disease, one sister with gallbladder surgery, others alive and well Social History Occupation: elementary school teacher, full-time Hx Alcohol Use: Yes (rarely)Hx Substance Use: No Smoking Status: Never Smoker Living Arrangement: with Family Exam Vital Signs Vital Sign - Last Date Time Temp Pulse Resp B/P Pulse Ox O2 Delivery O2 Flow Rate FiO2 11/13/16 15:55 83 16 140/81 96 Room Air 11/13/16 09:48 36.8 Intake and Output 11/12/16 11/12/16 11/13/16 Cumulative From/Thru 15:00 23:00 07:00 11/12/16 08:23 - 11/13/16 06:32 Intake Total 1000 ml 366 ml 951 ml 2317 ml Output Total 825 ml 900 ml 1725 ml Balance 1000 ml -459 ml 51 ml 592 ml Intake Oral 0 ml 0 ml 0 ml IV Total 1000 ml 366 ml 951 ml 2317 ml Output Urine Total 625 ml 900 ml 1525 ml Gastric Drainage Total 200 ml 0 ml 200 ml # Bowel Movements 0 0 Additional Information: General: Alert, Oriented X3, Cooperative, No Acute Distress Head: Normocephalic, atraumatic. External ears normal. Eyes: PERRLA, EOMI. Anicteric sclerae. Mouth: Mouth Normal, Mucous Membranes Moist/[place] Nose: NG tube in place. Neck: Neck supple with full range of motion. Chest & Lungs: Clear to auscultation bilaterally with no crackles, wheezes, or rhonchi. Cardiovascular: Regular Rate/Rhythm, Normal S1, Normal S2, No Murmurs/Rubs/ Gallops Abdomen: Epigastric tenderness. Mild-moderate abdominal distention. No masses. No guarding. Soft. No rebound tenderness. No hepatosplenomegaly. High-pitched bowel tones. Musculoskeletal: Normal Range of Motion Extremities: No cyanosis/clubbing/edema bilaterally Neurological: Grossly Neurologically Intact, Normal Speech, Strength Normal 4/ 4 ext, Normal Gait Lab and Diagnostics Result Diagram: 11/13/1652911/13/16 0530 Assessment & Plan Assessment Patient is a 66 year old female with history of dyspepsia who presents with severe epigastric pain, nausea, vomiting, and diarrhea followed by obstipation after eating spicy food 2 days ago. Admitted for partial small bowel obstruction. 1. Epigastric abdominal pain, acute. - Her abdominal pain may be due to her partial small bowel obstruction evident on CT abdomen. However, given the location and similarity to her previous episodes of dyspepsia, as well as small bowel wall thickening around the jejunum , other causes of abdominal pain should be explored. Pancreatitis unlikely given normal lipase and normal pancreas enhancement on CT. DDx includes peptic ulcer disease, gastritis, esophagitis, Crohn's disease, and small bowel neoplasm. - Continue Protonix 40 mg BID - Will perform EGD to evaluate. 2. Partial small bowel obstruction, acute. - Followed by General Surgery - NPO, to begin advancing diet as tolerated when pt is adequately passing gas and stool. - Recommend small bowel follow through to evaluate for cause of small bowel obstruction. Problems: Pain Evaluation: Adequate Pain Control GI Prophylaxis: Proton Pump Inhibitor VTE Prophylaxis: Sub-Q Enoxaparin VTE Mechanical Devices: Intermittant Pneumatic CD Resuscitation Status: CPR: Attempt Resuscitation Attending Statement Pt seen and examined agree with resident physician history and physical plan for EGD to evaluate for mucosal disease Shad Joseph Nov 13, 2016 16:34 John Segovia MD Nov 15, 2016 17:35
--- NOTE | 2016-11-14 | ENDO ---
[address] [address] ENDOSCOPY PROCEDURE PATIENT: HEATHER WILSON : 1950 MR#: [id number] ADMIT: 11/12/2016 JOB ID: [id number] DATE OF PROCEDURE: PROCEDURE: Esophagogastroduodenoscopy. INDICATION: Patient with a history of abdominal pain for the past one month, who presents with small bowel obstruction and findings suggestive of inflammation in the small bowel. MISCELLANEOUS: The patient's ASA classification is II. Mallampati score is 2. MEDICATIONS: 1. Versed 2 mg. 2. Fentanyl 50 mcg. INSTRUMENT USED: [id number]. PROCEDURE DETAILS: After informed consent was obtained, the patient was brought into the GI suite, where she was placed on oxygen via nasal cannula and monitored with continuous pulse oximeter, telemetry and blood pressure monitoring. A time-out was performed. Then, she was placed in the left lateral decubitus position and medications were administered for sedation. A bite block was placed. The standard EGD scope was inserted through the bite block and advanced under direct visualization to second portion of duodenum without difficulty. FINDINGS: 1. Normal appearing duodenal bulb, first and second portion. Multiple random biopsies were obtained. 2. Normal appearing pylorus and antrum. Multiple random biopsies were obtained. In the proximal body, there were punctate erythematous lesions consistent with NG tube trauma. 3. Retroflexed views in the gastric body revealed a normal appearing cardia and fundus. 4. Normal appearing GE junction with a regular Z-line at 42 cm. 5. Normal appearing esophagus. 6. There was an NG tube placed. The tip of the NG tube was in the mid gastric body. IMPRESSION: Normal esophagogastroduodenoscopy exam to second portion of duodenum. RECOMMENDATIONS: 1. Await biopsy results. 2. Consider small bowel evaluation with upper GI with small bowel follow-through and then possibly capsule endoscopy if needed for further evaluation. COMPLICATIONS: None. ESTIMATED BLOOD LOSS: Less than 5 mL. MTDD
--- NOTE | 2016-11-14 04:51 | NUR ---
Clear Liquid Diet Pt tolerates jello, warm water, tea, and chicken broth this shift with no N/V. She states some sharp pains after consuming these items, pains resolve quickly and she feels they may be gas. She reports flatulence but no BM. No requests for PRN for pain. Pt ambulates on unit. IV infusing, patent. No SOB or cardiac distress. Will continue to monitor
[2016-11-14 06:45] VITALS: BP 98/62; PULSE 75; O2SAT 98
[2016-11-14] MEDS: Pantoprazole 4 mg/mL 10 mL Inj IVPUSH SCH ×2 (08:14→15:59)
--- NOTE | 2016-11-14 08:33 | PCM.PNSURG ---
Subjective Date of Service: Nov 14, 2016 Visit Information: Reason for Visit Partial Sbo Surgery/Surgery Date Post-Op Day # Date of Admission: Nov 12, 2016 at 11:01 Hospital Day #3 Subjective: Passing flatus but has not had a bowel movement. Drinking sips of liquids with no nausea or vomiting, anorexic. No complaints of pain, not requiring any analgesic. Ambulatory in the hallway without assistance. Postop General: No Complaints Gastrointestinal: Tolerating Oral Feedings, No N/V, Passing Flatus Pain Management: No or Minimal Pain Postop Activity: Ambulating Independently Objective Vital Sign- Last 8 Hours Date Time Temp Pulse Resp B/P Pulse Ox O2 Delivery O2 Flow Rate FiO2 11/14/16 06:45 36.2 75 98/62 98 Room Air Intake and Output- Last 8 Hour 11/14/16 Cumulative From/Thru 07:00 11/12/16 08:23 - 11/14/16 06:45 Intake Total 2146 ml 6412 ml Output Total 1675 ml 4500 ml Balance 471 ml 1912 ml Intake Oral 875 ml 1695 ml IV Total 1271 ml 4717 ml Output Urine Total 1675 ml 4300 ml Gastric Drainage Total 200 ml # Bowel Movements 0 0 General: Alert, Cooperative, No Acute Distress Heart: No Murmurs/Rubs/Gallops, Other (irregular) Abdomen: Soft, Non-tender, Non-distended, No masses Neuro: Normal Speech Catheters: None Result Diagram: 11/13/16 0530 11/13/16 0530 Assessment & Plan Impression Primary diagnosis: Partial small bowel obstruction with thickened jejunum on CT scan. Bowel obstruction appears to be resolved. Endoscopy was essentially normal yesterday as reported by GI. Other diagnoses: 1. Functional dyspepsia 2. Pneumonia 2015 Problems: Plan No surgical intervention is indicated. Surgery will sign off. Please call if we need to be reinvolved. VTE Prophylaxis: Sub-Q Enoxaparin Resuscitation Status: CPR: Attempt Resuscitation Isaias Beal PA-C Nov 14, 2016 08:33
--- NOTE | 2016-11-14 09:37 | PCM.PNMED ---
Subjective Date of Service Nov 14, 2016 Subjective Gastroenterology Progress Note Patient's NG tube was discontinued yesterday, tolerated well. She has been advanced to clear liquids, tolerating with some transient sharp abdominal pain which quickly resolves, but without nausea or vomiting. She reports passing gas but still no bowel movements. She has no other complaints at this time. Exam Vital Signs Vital Sign - Last Date Time Temp Pulse Resp B/P Pulse Ox O2 Delivery O2 Flow Rate FiO2 11/14/16 06:45 36.2 75 98/62 98 Room Air 11/13/16 20:24 20 Intake and Output 11/13/16 11/13/16 11/14/16 Cumulative From/Thru 15:00 23:00 07:00 11/12/16 08:23 - 11/14/16 06:45 Intake Total 979 ml 970 ml 2146 ml 6412 ml Output Total 1100 ml 1675 ml 4500 ml Balance 979 ml -130 ml 471 ml 1912 ml Intake Oral 820 ml 875 ml 1695 ml IV Total 979 ml 150 ml 1271 ml 4717 ml Output Urine Total 1100 ml 1675 ml 4300 ml Gastric Drainage Total 200 ml # Bowel Movements 0 0 0 Exam General: Alert, Oriented X3, Cooperative, No Acute Distress Eyes: PERRLA, EOMI. Anicteric sclerae. Chest & Lungs: Clear to auscultation bilaterally with no crackles, wheezes, or rhonchi. Cardiovascular: Regular Rate/Rhythm, Normal S1, Normal S2, No Murmurs/Rubs/ Gallops Abdomen: Mild epigastric tenderness. Mild abdominal distention. No masses. No guarding. Soft. No rebound tenderness. No hepatosplenomegaly. Hypoactive bowel tones. Extremities: No cyanosis/clubbing/edema bilaterally Neurological: Grossly Neurologically Intact, Normal Speech, Strength Normal 4/ 4 ext, Normal Gait Lab and Diagnostics Result Diagram: 11/13/1630 11/13/16 0530 X-Rays, CTs and MRIs PROCEDURE: CT ABDOMEN AND PELVIS WITH CONTRAST ([id number]) FINDINGS: Solid organs: Liver and spleen are normal in size and enhancement. In the right lobe of the liver is a 1.4 cm area that appears irregular discontinuous enhancement. No pneumothorax can represent an hemangioma. In the spleen there 2 areas of decreased attenuation compared to normal enhancing parenchyma of unknown significance as they are an old studies to compare. Gallbladder is considered within normal limits.. Biliary system is non dilated. Pancreas enhances normally. No adrenal nodules. Kidneys demonstrate normal size and enhancement, without hydronephrosis. Peritoneum and bowel: There is a moderate amount of fluid in the stomach and proximal small bowel consistent with partial obstruction. The obstruction is thought to be jejunum and position and series 3 image 32 there is an abrupt transition. At this point there appears to be 15-20 cm of small bowel with some thickening wall and enhancing mucosa. No air in bowel wall is seen. No identifiable vascular abnormality to indicate loss of enhancement from contrast is seen. Inflammation or infection could cause this appearance. Adhesion could cause ischemic change. Terminal ileum cecum area are considered within normal limits. There is a small amount of free fluid in the cul-de-sac. IMPRESSION: Partial small bowel obstruction due to 15-20 cm of abnormal appearing jejunum. The jejunum appears to be thick walled with enhancing mucosa. Cause of this is not identified. This could be inflammatory, effective, or ischemic. Dictated by: Pan Black M.D. on 11/12/2016 at 9:51 . Assessment & Plan Patient is a 66 year old female with history of dyspepsia who presents with severe epigastric pain, nausea, vomiting, and diarrhea followed by obstipation after eating spicy food 2 days prior to admission. Admitted for partial small bowel obstruction. 1. Epigastric abdominal pain, acute. - Her abdominal pain may be due to her partial small bowel obstruction evident on CT abdomen. However, given the location and similarity to her previous episodes of dyspepsia, as well as small bowel wall thickening around the jejunum , other causes of abdominal pain should be explored. Pancreatitis unlikely given normal lipase and normal pancreas enhancement on CT. Although less likely , also consider Crohn's disease, and small bowel neoplasm. EGD yesterday was normal, so peptic ulcer disease is unlikely; multiple random biopsies were taken. - Consider discontinuing Protonix - Await biopsy results - If pain persists, consider small bowel evaluation with capsule endoscopy 2. Partial small bowel obstruction, acute. - Patient has been advanced to a clear liquid diet, tolerating well so far. She has passed gas but no stool. - Clear liquid diet, advance as tolerated - Consider small bowel follow through to evaluate for cause of small bowel obstruction if it does not resolve. GI Prophylaxis: Proton Pump Inhibitor VTE Prophylaxis: Sub-Q Enoxaparin VTE Mechanical Devices: Intermittant Pneumatic CD Resuscitation Status: CPR: Attempt Resuscitation Attending Statement pt seen and examined agree with resident physician progress note plan as per his note. Shad Joseph Nov 14, 2016 08:27 John Segovia MD Nov 15, 2016 17:38
[2016-11-14] MEDS: D5 0.45% NaCl + KCl 20 mEq/L 1,000 ML IV SCH ×3 (10:01→21:09)
--- NOTE | 2016-11-14 13:00 | NUR ---
DIET Patient's diet was advanced to a puree diet for lunch. She ate 75 % of her lunch. Denies nausea. No emesis noted.
[2016-11-14 13:08] VITALS: BP 102/66; PULSE 76; RESP 16; O2SAT 100
[2016-11-14] MEDS: Ondansetron 2 mg/mL 2 mL Inj IVPUSH PRN ×2 (14:52→17:36)
[2016-11-14 14:57] VITALS: BP 143/73; PULSE 84; RESP 18; O2SAT 97
--- NOTE | 2016-11-14 15:00 | NUR ---
MD NOTIFICATION Patient stated: "I am not feeling well." Patient is complaining of the following: Coldness/clamminess. Lightheaded. Headache in the frontal/sinus area. No HX of migraines. New onset of blurry vision. She complains of nausea. No emesis noted. Patient is alert and oriented X 4. Neuro is intact. Equal hand hydrology technician/BLE strength. No facial drooping noted. T-37.4; HR-80's; SBP-140's. BS-99. Zofran IVP administered. Dr. Reynolds made aware. Per he will be in to assess the patient. Will continue to monitor. Addendum: 11/14/16 at 1707 by SUSANA LAWRENCE RN NOTE FOR 1535 Dr. Reynolds came and assessed the patient with new orders received. Ibuprofen PO administered. Flu swab sent to the lab. Will continue to monitor. Addendum: 11/14/16 at 1708 by SUSANA LAWRENCE RN CONDITION Patient is asleep at this time. Via FELDT scale patients pain level is 0/10.
--- NOTE | 2016-11-14 16:06 | NUR ---
Social Work Initial Assessment D: EMR Reviewed. See initial assessment. Pt is a 66Y old female admitted for Partial SBO. Insurance is [employer]. PCP is Dr. Frey. ERYN met with Pt and Pt's spouse at bedside. SW role explained. Pt not feeling well so deferred questions to spouse. Pt lives at home with her spouse in [place] where she remains completely independent. Pt had NG removed and it was anticipated Pt would discharge today. Pt reporting nausea and clammy this afternoon. SW anticipates Pt to discharge home via POV when medically stable. No discharge needs identified. If needs arise, SW to address. A: Pt who is independent at baseline P: SW anticipates Pt to discharge home via POV when medically stable. No discharge needs identified. If needs arise, ERYN to address. BRYON Nunes Addendum: 11/14/16 at 1610 by SHAYLA GEIGER Amended: Links added.
--- NOTE | 2016-11-14 17:26 | PCM.PNMED ---
Subjective Date of Service Nov 14, 2016 Subjective Pt seen and examined. Patient was doing well s.p endoscopy, however patient this afternoon was displaying flu like symptoms. Patient will be tested for influenza. Exam Vital Signs Vital Sign - Last Date Time Temp Pulse Resp B/P Pulse Ox O2 Delivery O2 Flow Rate FiO2 11/14/16 14:57 37.4 84 18 143/73 97 Room Air Intake and Output 11/13/16 11/13/16 11/14/16 Cumulative From/Thru 15:00 23:00 07:00 11/12/16 08:23 - 11/14/16 06:45 Intake Total 979 ml 970 ml 2146 ml 6412 ml Output Total 1100 ml 1675 ml 4500 ml Balance 979 ml -130 ml 471 ml 1912 ml Intake Oral 820 ml 875 ml 1695 ml IV Total 979 ml 150 ml 1271 ml 4717 ml Output Urine Total 1100 ml 1675 ml 4300 ml Gastric Drainage Total 200 ml # Bowel Movements 0 0 0 Exam General: Obese man sitting forward moderate distress HEENT: sclerae anicteric, oral mucosa moist, rhinorrea present, Neck: no JVD Chest: clear to auscultation Cardiac: S1S2, no murmur Abdomen: BS present, non-tender to palpate Extremities: No edema Neuro: A&O, cranial nerves symmetric, motor strength 5/5, Lab and Diagnostics Result Diagram: 11/13/16 0530 11/13/16 0530 X-Rays, CTs and MRIs PROCEDURE: CT ABDOMEN AND PELVIS WITH CONTRAST ([id number]) FINDINGS: Solid organs: Liver and spleen are normal in size and enhancement. In the right lobe of the liver is a 1.4 cm area that appears irregular discontinuous enhancement. No pneumothorax can represent an hemangioma. In the spleen there 2 areas of decreased attenuation compared to normal enhancing parenchyma of unknown significance as they are an old studies to compare. Gallbladder is considered within normal limits.. Biliary system is non dilated. Pancreas enhances normally. No adrenal nodules. Kidneys demonstrate normal size and enhancement, without hydronephrosis. Peritoneum and bowel: There is a moderate amount of fluid in the stomach and proximal small bowel consistent with partial obstruction. The obstruction is thought to be jejunum and position and series 3 image 32 there is an abrupt transition. At this point there appears to be 15-20 cm of small bowel with some thickening wall and enhancing mucosa. No air in bowel wall is seen. No identifiable vascular abnormality to indicate loss of enhancement from contrast is seen. Inflammation or infection could cause this appearance. Adhesion could cause ischemic change. Terminal ileum cecum area are considered within normal limits. There is a small amount of free fluid in the cul-de-sac. IMPRESSION: Partial small bowel obstruction due to 15-20 cm of abnormal appearing jejunum. The jejunum appears to be thick walled with enhancing mucosa. Cause of this is not identified. This could be inflammatory, effective, or ischemic. Dictated by: Pan Black M.D. on 11/12/2016 at 9:51 . Assessment & Plan Patient is a 66 year old female with history of dyspepsia who presents with severe epigastric pain, nausea, vomiting, and diarrhea followed by obstipation after eating spicy food 2 days prior to admission. Admitted for partial small bowel obstruction. 1. Epigastric abdominal pain, acute. - Her abdominal pain may be due to her partial small bowel obstruction evident on CT abdomen. However, given the location and similarity to her previous episodes of dyspepsia, as well as small bowel wall thickening around the jejunum , other causes of abdominal pain should be explored. Pancreatitis unlikely given normal lipase and normal pancreas enhancement on CT. Although less likely , also consider Crohn's disease, and small bowel neoplasm. EGD yesterday was normal, so peptic ulcer disease is unlikely; multiple random biopsies were taken. - NEgative endoscopy - tolerating food currently 2. Partial small bowel obstruction, acute. - Patient has been advanced to a clear liquid diet, tolerating well so far. She has passed gas but no stool. - Clear liquid diet, advance as tolerated 3. Headache and rhinorrhea - Pt has a sudden onset of headache, rhinorrhea, general malaise - Pt will be tested for the flu GI Prophylaxis: Proton Pump Inhibitor VTE Prophylaxis: Sub-Q Enoxaparin VTE Mechanical Devices: Intermittant Pneumatic CD Resuscitation Status: CPR: Attempt Resuscitation Santiago Reynolds MD Nov 14, 2016 17:25
[2016-11-14 20:18] VITALS: BP 113/72; PULSE 69; RESP 18; O2SAT 98
--- NOTE | 2016-11-15 04:57 | NUR ---
Activity Pt tolerating clear liquids and apple sauce, diet has been advanced to pureed and pt declines zofran / other food options this shift. Pt states no pain at this time, nausea/chills from earlier no longer present. Pt ambulates in [place] and to restroom independently. IV running D5 1/2NS with 20mEq K+ at 100 ml/h. No bloating or BM, pt reports flatulence. Will continue to monitor and advance diet as tolerated.
[2016-11-15 05:41] VITALS: BP 104/61; PULSE 62; RESP 16; O2SAT 100
[2016-11-15] MEDS: Pantoprazole 4 mg/mL 10 mL Inj IVPUSH SCH (07:51)
[2016-11-15] MEDS: D5 0.45% NaCl + KCl 20 mEq/L 1,000 ML IV SCH (07:52)
--- NOTE | 2016-11-15 11:07 | PCM.PNMED ---
Subjective Date of Service Nov 15, 2016 Subjective Patient reports some nausea last night and this morning about 30-60 minutes after eating food, and has not yet had a bowel movement. She reports mild but improved bloating and mild malaise. She has been passing gas and denies fevers, chills, abdominal pain, vomiting, diarrhea. Exam Vital Signs Vital Sign - Last Date Time Temp Pulse Resp B/P Pulse Ox O2 Delivery O2 Flow Rate FiO2 11/15/16 05:41 36.5 62 16 104/61 100 Room Air Intake and Output 11/14/16 11/14/16 11/15/16 Cumulative From/Thru 15:00 23:00 07:00 11/12/16 08:23 - 11/15/16 06:45 Intake Total 1920 ml 2006 ml 07584 ml Output Total 3102 ml 1400 ml 9002 ml Balance -1182 ml 606 ml 1336 ml Intake Oral 818 ml 861 ml 3374 ml IV Total 1102 ml 1145 ml 6964 ml Output Urine Total 3102 ml 1400 ml 8802 ml Gastric Drainage Total 200 ml # Bowel Movements 0 0 Exam General: Alert, Oriented X3, Cooperative, No Acute Distress Eyes: PERRLA, EOMI. Anicteric sclerae. Chest & Lungs: Clear to auscultation bilaterally with no crackles, wheezes, or rhonchi. Cardiovascular: Regular Rate/Rhythm, Normal S1, Normal S2, No Murmurs/Rubs/ Gallops Abdomen: Mild epigastric tenderness. Mild abdominal distention. No masses. No guarding. Soft. No rebound tenderness. No hepatosplenomegaly. Normoactive bowel tones. Extremities: No cyanosis/clubbing/edema bilaterally Neurological: Grossly Neurologically Intact, Normal Speech, Strength Normal 4/ 4 ext, Normal Gait Lab and Diagnostics Result Diagram: 11/13/1630 11/13/16 0530 X-Rays, CTs and MRIs PROCEDURE: CT ABDOMEN AND PELVIS WITH CONTRAST ([id number]) FINDINGS: Solid organs: Liver and spleen are normal in size and enhancement. In the right lobe of the liver is a 1.4 cm area that appears irregular discontinuous enhancement. No pneumothorax can represent an hemangioma. In the spleen there 2 areas of decreased attenuation compared to normal enhancing parenchyma of unknown significance as they are an old studies to compare. Gallbladder is considered within normal limits.. Biliary system is non dilated. Pancreas enhances normally. No adrenal nodules. Kidneys demonstrate normal size and enhancement, without hydronephrosis. Peritoneum and bowel: There is a moderate amount of fluid in the stomach and proximal small bowel consistent with partial obstruction. The obstruction is thought to be jejunum and position and series 3 image 32 there is an abrupt transition. At this point there appears to be 15-20 cm of small bowel with some thickening wall and enhancing mucosa. No air in bowel wall is seen. No identifiable vascular abnormality to indicate loss of enhancement from contrast is seen. Inflammation or infection could cause this appearance. Adhesion could cause ischemic change. Terminal ileum cecum area are considered within normal limits. There is a small amount of free fluid in the cul-de-sac. IMPRESSION: Partial small bowel obstruction due to 15-20 cm of abnormal appearing jejunum. The jejunum appears to be thick walled with enhancing mucosa. Cause of this is not identified. This could be inflammatory, effective, or ischemic. Dictated by: Pan Black M.D. on 11/12/2016 at 9:51 . Assessment & Plan Patient is a 66 year old female with history of dyspepsia who presents with severe epigastric pain, nausea, vomiting, and diarrhea followed by obstipation after eating spicy food 2 days prior to admission. Admitted for partial small bowel obstruction. 1. Epigastric abdominal pain, acute. - Her abdominal pain may be due to her partial small bowel obstruction evident on CT abdomen. However, given the location and similarity to her previous episodes of dyspepsia, as well as small bowel wall thickening around the jejunum , other causes of abdominal pain should be explored. Pancreatitis unlikely given normal lipase and normal pancreas enhancement on CT. Although less likely , also consider Crohn's disease, and small bowel neoplasm. EGD yesterday was normal, so peptic ulcer disease is unlikely; multiple random biopsies were taken. - Consider discontinuing Protonix - Await biopsy results - If pain persists, consider small bowel evaluation with capsule endoscopy 2. Partial small bowel obstruction, acute. - She has been tolerating her diet fairly well so far, but with some mild nausea and apprehension, and has been eating minimally. She continues to pass gas but no stool. - Advance diet as tolerated - Consider small bowel follow through to evaluate for cause of small bowel obstruction if her symptoms worsen. GI Prophylaxis: Proton Pump Inhibitor VTE Prophylaxis: Sub-Q Enoxaparin VTE Mechanical Devices: Intermittant Pneumatic CD Resuscitation Status: CPR: Attempt Resuscitation Attending Statement I did not see patient today. I agree with resident physician note above. I recommend SBFT to further evaluate await biopsy results. will notify her of EGD bioipsy results once received. Shad Joseph Nov 15, 2016 11:02 John Segovia MD Nov 15, 2016 17:40
--- NOTE | 2016-11-15 12:06 | PATH ---
SURGICAL PATHOLOGY Attending Physician:Ana Roth CASE STATUS: Signed Out PATIENT NAME: HEATHER WILSON PID: [id number] : 1950 DATE COLLECTED:11/13/2016 00:00 SPECIMEN: 1: Duodenum, Biopsy 2: Gastric, Biopsy CLINICAL HISTORY: A: DUODENUM BIOPSY B: GASTRIC BIOPSY ABDOMINAL PAIN FINAL DIAGNOSIS: 1.DUODENUM BIOPSY: DUODENAL MUCOSA WITH NO DIAGNOSTIC ALTERATIONS. Negative for inflammation, sprue, dysplasia, and malignancy. 2.GASTRIC BIOPSY: BODY-TYPE MUCOSA WITH NO DIAGNOSTIC ALTERATIONS. Negative for Helicobacter organisms. Negative for intestinal metaplasia. Negative for dysplasia and malignancy. ICD10 CODE R10.9 GROSS DESCRIPTION: The specimen is received in two formalin filled containers labeled with the patient's name. 1). The specimen is sublabeled "duodenum" and consists of 4 portions of tissue which aggregate to 0.4 x 0.4 x 0.3 CM. The specimen is entirely submitted in cassette 1A. 2). The specimen is sublabeled "gastric" and consists of a 0.5 x 0.4 x 0.3 CM portion of tissue. The specimen is entirely submitted in cassette 2A. 11/14/2016 [facility] MICRO DESCRIPTION: See diagnosis. ICD-9 CODES: CPT CODES: 1: 71530 2: 26722 Electronically Signed Out Michelle Kinsey MD [facility] Pathology [facility] [address], [place] [address] Technical component performed at [facility], [address] [place] [address] Ave[address], [place], [address]
--- NOTE | 2016-11-15 12:07 | PCM.DIMED ---
Discharge Instructions Date of Service Nov 15, 2016 Dates of Hospitalization Nov 12, 2016 at 11:01 Discharge Diagnosis Discharge Diagnosis small bowel obstruction Medication Instructions Slowly introduce various food groups into your diet. Avoid foods that have caused you to have bad reactions in the past. Test Results Patient Name: HEATHER WILSON MR#: [id number] Location: [facility] Ordering Phys: Ronald Cordero MD Date of Service: 11/13/16 0600 PROCEDURE: X-RAY ACUTE ABDOMINAL SERIES ([id number]) INDICATIONS: f/u sbo TECHNIQUE: One view chest and two views of the abdomen were acquired. COMPARISON: [facility], CT, CT ABD PELVIS W CON, 11/12/2016, 9:14. FINDINGS: Surgical changes and devices: There is a nasogastric tube in stomach. Chest: No acute pulmonary opacities. Left basilar opacities are likely atelectasis. Heart size is normal. No pleural effusions. No pneumoperitoneum. Abdomen: Mildly distended small bowel loops are noted in mid abdomen with several air-fluid levels. The distal small bowel there is non-aerated. Moderate amount of stool in colon. No suspicious calcifications. Visualized solid organ contours appear normal. Bones: No suspicious bony lesions. IMPRESSION: Persistent small bowel obstruction. Patient Name: HEATHER WILSON MR#: [id number] Location: [facility] Ordering Phys: Karl Petit DO Date of Service: 11/12/16 0841 PROCEDURE: CT ABDOMEN AND PELVIS WITH CONTRAST ([id number]) INDICATIONS: upper abd pain, persistent vomiting TECHNIQUE: After the administration of intravenous contrast, 5 mm thick sections acquired from the diaphragm to the symphysis. 5 mm coronal and sagittal reformats were acquired. For radiation dose reduction, the following was used: automated exposure control, adjustment of mA and/or kV according to patient size. COMPARISON: None. FINDINGS: Image quality: Excellent. ABDOMEN: Lung bases: Lung bases are clear. Heart size is normal. Solid organs: Liver and spleen are normal in size and enhancement. In the right lobe of the liver is a 1.4 cm area that appears irregular discontinuous enhancement. No pneumothorax can represent an hemangioma. In the spleen there 2 areas of decreased attenuation compared to normal enhancing parenchyma of unknown significance as they are an old studies to compare. Gallbladder is considered within normal limits.. Biliary system is non dilated. Pancreas enhances normally. No adrenal nodules. Kidneys demonstrate normal size and enhancement, without hydronephrosis. Peritoneum and bowel: There is a moderate amount of fluid in the stomach and proximal small bowel consistent with partial obstruction. The obstruction is thought to be jejunum and position and series 3 image 32 there is an abrupt transition. At this point there appears to be 15-20 cm of small bowel with some thickening wall and enhancing mucosa. No air in bowel wall is seen. No identifiable vascular abnormality to indicate loss of enhancement from contrast is seen. Inflammation or infection could cause this appearance. Adhesion could cause ischemic change. Terminal ileum cecum area are considered within normal limits. There is a small amount of free fluid in the cul-de-sac. Nodes and vessels: No retroperitoneal or mesenteric adenopathy by size criteria. Aorta and inferior vena cava are normal in size. Miscellaneous: No ventral hernias. PELVIS: Genitourinary: Bladder wall thickness is normal. Uterus is mildly enlarged and heterogeneous and lobular suggesting multiple fibroids. Miscellaneous: No inguinal hernias or adenopathy. Bones: No suspicious bony lesions. No vertebral body compression fractures. IMPRESSION: Partial small bowel obstruction due to 15-20 cm of abnormal appearing jejunum. The jejunum appears to be thick walled with enhancing mucosa. Cause of this is not identified. This could be inflammatory, effective, or ischemic. Diet Other (as above ) Activity No restrictions Call your provider Vomitting, Other (abdominal distention ) Patient Instructions Follow-up plan Take your diet slow Follow up with your pmd at your earliest convience You do not have any restrictions in terms of activity or diet. Follow-up with PCP in: 2 weeks Santiago Reynolds MD Nov 15, 2016 12:07
--- NOTE | 2016-11-15 12:25 | NUR ---
Social Work Discharge and Continued Discharge Planning: SW acknowledged order for discharge. Plan is home with spouse. Patient resides in [facility] and is independent at baseline. Plan is home with . No anticipated discharge needs at this time. SW will continue to follow if further needs arise. PLAN: Home with , via POV, pending clinical course. No anticipated discharge needs identified. Karina SLATER
--- NOTE | 2016-11-15 15:56 | NUR ---
Discharge Pt discharged at 1405 walking out to private vehicle with . Pt has no c/o pain, VSS, A&O, HERRON and able to tolerate small amount of lunch. IV removed intact. Pt has care notes and discharge papers, no new rx's given and all questions answered. All belongings with pt.
--- NOTE | 2016-12-28 15:31 | PCM.DC.MED ---
Discharge Summary Date of Service Dec 28, 2016 Dates of Hospitalization Date of Hospital Admission Nov 12, 2016 at 11:01 Date of Discharge: Nov 15, 2016 Providers: Admitting Physician: Kamila Rodríguez MD Primary Care Physician: Marce Frey MD Attending Physician: Nghia Santana MD Diagnosis at Time of Discharge Diagnosis at Time of Discharge small bowel obstruction Procedures XRay, CTs & MRIs PROCEDURE: CT ABDOMEN AND PELVIS WITH CONTRAST ([id number]) FINDINGS: Solid organs: Liver and spleen are normal in size and enhancement. In the right lobe of the liver is a 1.4 cm area that appears irregular discontinuous enhancement. No pneumothorax can represent an hemangioma. In the spleen there 2 areas of decreased attenuation compared to normal enhancing parenchyma of unknown significance as they are an old studies to compare. Gallbladder is considered within normal limits.. Biliary system is non dilated. Pancreas enhances normally. No adrenal nodules. Kidneys demonstrate normal size and enhancement, without hydronephrosis. Peritoneum and bowel: There is a moderate amount of fluid in the stomach and proximal small bowel consistent with partial obstruction. The obstruction is thought to be jejunum and position and series 3 image 32 there is an abrupt transition. At this point there appears to be 15-20 cm of small bowel with some thickening wall and enhancing mucosa. No air in bowel wall is seen. No identifiable vascular abnormality to indicate loss of enhancement from contrast is seen. Inflammation or infection could cause this appearance. Adhesion could cause ischemic change. Terminal ileum cecum area are considered within normal limits. There is a small amount of free fluid in the cul-de-sac. IMPRESSION: Partial small bowel obstruction due to 15-20 cm of abnormal appearing jejunum. The jejunum appears to be thick walled with enhancing mucosa. Cause of this is not identified. This could be inflammatory, effective, or ischemic. Dictated by: Pan Black M.D. on 11/12/2016 at 9:51 . Brief History Patient is a 66 year old female with history of dyspepsia who presents with severe epigastric pain after eating spicy steak 2 days ago. She reports her pain initially started as a sharp pain in the epigastric region, similar to her prior pain but more severe. The pain began to move down in to bilateral upper quadrants, radiating down into bilateral lower quadrants. She described it as a colicky pain over about 30 minutes, with continuous underlying pain. The pain was accompanied by nausea, vomiting and explosive diarrhea. The diarrhea stopped the next day and she had not had a bowel movement or flatus since. She then began having severe abdominal distension and pain. In the ED, abdominal CT showed a moderate amount of fluid in the stomach and proximal small bowel consistent with partial obstruction, likely in the jejunum. CT also revealed wall thickening around the jejunum. Other than one episode of acute epigastric pain in Dec 2015 and abdominal surgery at 8 months old for an abdominal mass, she denies any other prior gastroenterologic history. She denies history of Crohn's, celiac disease, gallbladder disease, liver disease, and has never been diagnosed for peptic ulcer disease and has never been tested for H. pylori. She denies history of colon cancer, but states her mother had peptic ulcer disease, requiring surgery. She is unsure about her last colonoscopy but states that she has regularly schedule colonoscopy and has never had an abnormal result. She denies NSAID use, alcohol use, or smoking. Today, she states her abdominal pain has mostly resolved, but she has still not had a bowel movement. She has been passing some gas today. She reports abdominal distension, but much improved from admission. She reports occasional nausea, but denies vomiting. She denies fevers, chills, hematochezia. Hospital Course Patient is a 66 year old female with history of dyspepsia who presents with severe epigastric pain, nausea, vomiting, and diarrhea followed by obstipation after eating spicy food 2 days prior to admission. Admitted for partial small bowel obstruction. 1. Epigastric abdominal pain, acute. - Her abdominal pain may be due to her partial small bowel obstruction evident on CT abdomen. However, given the location and similarity to her previous episodes of dyspepsia, as well as small bowel wall thickening around the jejunum , other causes of abdominal pain should be explored. Pancreatitis unlikely given normal lipase and normal pancreas enhancement on CT. Although less likely , also consider Crohn's disease, and small bowel neoplasm. EGD yesterday was normal, so peptic ulcer disease is unlikely; multiple random biopsies were taken. - will discontinue Protonix - obtain biopsy results as an out patient - If pain persists, consider small bowel evaluation with capsule endoscopy 2. Partial small bowel obstruction, acute. - She has been tolerating her diet fairly well so far, but with some mild nausea and apprehension, and has been eating minimally. She continues to pass gas but no stool. - Advance diet as tolerated Exam Test 11/12/16 08:50 11/12/16 13:07 11/13/16 05:30 Erythrocyte Sedimentation Rate 2mm/hr (0-40) Magnesium Level 2.1mg/dL (1.6-2.6) Lipase 26U/L (13-60) Urine Color Yellow (YELLOW) Urine Appearance Clear (CLEAR,HAZY) Urine pH 7.0 (5.0-8.0) Urine Specific [place] <1.005 (1.003-1.035) Urine Protein Negativemg/dL (NEG,TRACE) Urine Glucose (UA) Negativemg/dL (NEGATIVE) Urine Ketones 15mg/dL (NEGATIVE) Urine Occult Blood Trace (NEGATIVE) Urine Nitrite Negative (NEGATIVE) Urine Bilirubin Negative (NEGATIVE) Urine Urobilinogen Normalmg/dL (NORMAL) Urine Leukocyte Esterase Negative (NEGATIVE) Urine RBC 0-2/hpf (0-2) Urine WBC 0-5/hpf (0-5) Urine Epithelial Cells Occasional/hpf (NONE-MOD) Urine Crystals None seen (NONE SEEN) Urine Bacteria None/hpf (NONE-FEW) Urine Hyaline Casts None/lpf (NONE) Urine Granular Casts None seen (NONE SEEN) Urine Waxy Casts None seen (NONE SEEN) Urine Red Blood Cell Casts None seen (NONE SEEN) Urine White Blood Cell Casts None seen (NONE SEEN) Urine Mucus None seen (None Seen) Urine Trichomonas None seen (NONE SEEN) Urine Yeast None (NONE SEEN) Urinalysis Comment None Urine Culture Reflexed Not indicated White Blood Count 5.6th/mm3 (3.8-10.1) Red Blood Count 4.34mil/mm3 (3.90-5.20) Hemoglobin 13.4g/dL (12.0-15.6) Hematocrit 40.5% (35.0-46.0) Mean Corpuscular Volume 93.3fL (81-100) Mean Corpuscular Hemoglobin 30.9pg (27.0-35.0) Mean Corpuscular Hemoglobin Concent 33.1% (32.0-37.0) Red Cell Distribution Width 12.6% (12.3-15.4) Platelet Count 281bil/L (150-400) Neutrophils (%) (Auto) 61.4% (40-74) Lymphocytes (%) (Auto) 24.7% (14-46) Monocytes (%) (Auto) 12.1% (4-12) Eosinophils (%) (Auto) 1.2% (0-5) Basophils (%) (Auto) 0.2% (0-3) Sodium Level 139mEq/L (134-144) Potassium Level 4.3mEq/L (3.5-5.2) Chloride Level 104mEq/L (97-108) Carbon Dioxide Level 26mmol/L (18-29) Blood Urea Nitrogen 14mg/dL (8-27) Creatinine 0.87mg/dL (0.57-1.00) Estimat Glomerular Filtration Rate 94mL/min (>59) Glucose Level 118mg/dL (60-99) Calcium Level 8.5mg/dL (8.5-10.1) Total Bilirubin 0.7mg/dL (0.0-1.2) Aspartate Amino Transf (AST/SGOT) 11U/L (0-50) Alanine Aminotransferase (ALT/SGPT) 7U/L (0-32) Alkaline Phosphatase 54U/L (25-165) Total Protein 6.0g/dL (6.4-8.4) Albumin 3.6g/dL (3.4-5.0) Discharge Medications Discharge Medications Omeprazole (Omeprazole) 40 Mg Capsule.dr 40 MG PO DAILY (Reported) Additional med instructions Slowly introduce various food groups into your diet. Avoid foods that have caused you to have bad reactions in the past. Followup Plan Follow-up plan Take your diet slow Follow up with your pmd at your earliest convience You do not have any restrictions in terms of activity or diet. Discharge Diet: Other (as above ) Discharge Activity: No restrictions Follow-up with PCP in: 2 weeks Santiago Reynolds MD Dec 28, 2016 15:31
== END 2016-11-15 14:05 | disposition home or self-care (01) | DRG 390 ==
LOC: SED 08:21 → OBSVTOIN 11:01 → OSC 11:01
PROVIDERS: ADMIT Internal Medicine; ATTEND Internal Medicine
PROC: 0DB98ZX Excision of Duodenum, Via Natural or Artificial Opening Endoscopic, Diagnostic (ICD-10-PCS; principal; 2016-11-13 15:00)
PROC: 0DB78ZX Excision of Stomach, Pylorus, Via Natural or Artificial Opening Endoscopic, Diagnostic (ICD-10-PCS; 2016-11-13 15:00)
DX: K56.60 Unspecified intestinal obstruction (principal); K30 Functional dyspepsia; J34.89 Other specified disorders of nose and nasal sinuses